=== PATIENT | male | born 1980 | race Caucasian/White ===

== ENCOUNTER 2025-08-03 12:44 | Emergency (ER) | payer BC, SELFPAY ==
[2025-08-03 12:45] VITALS: BP 134/92
--- NOTE | 2025-08-03 12:59 | ED.GENMED ---
History of Present Illness
General
Chief Complaint: Flank Pain
Source: patient
Exam Limitations: none
Time Seen by Provider: 08/03/25 12:51
History of Present Illness
History of Present Illness:
See MDM
Past History
Past History
ED Past Medical History: Other (kidney stones)
ED Past Surgical History: Urological (litho/scope/stent)
Social History
Tobacco: Non-smoker
Alcohol: Occasional
Phy Exam
Physical Exam
Physical Exam:
See MDM
Course
Orders/Labs/Results
Orders:
Orders
08/03/25 12:57
CT Abd/pel Without Iv Or Oral Urgent
Comment:
Reason For Exam: Left flank pain radiating to groin
HYDROmorphone [Dilaudid] 1 mg IM NOW STA
Ketorolac [Toradol] 30 mg IV NOW STA
08/03/25 13:03
Urinalysis Reflex To Culture Urgent
Date Specimen was Collected: 08/03/25
Time Specimen was Collected: 12:58
Urine Microscopic Reflex Cult Urgent
08/03/25 13:05
Ketorolac [Toradol] 30 mg IM NOW STA
Abnormal Lab Results
08/03/25
13:03
Urine Albumin (Reflex) 1+ A
(Neg - Trace)
Vital Signs
Initial and Last Documented VS:
Initial Vital Signs
Temp Pulse Resp BP Pulse Ox
97.5 F 64 20 134/92 99
08/03/25 12:45 08/03/25 12:45 08/03/25 12:45 08/03/25 12:45 08/03/25 12:45
Last Documented Vital Signs
Temp Pulse Resp BP Pulse Ox
97.5 F 64 20 134/92 99
08/03/25 12:45 08/03/25 12:45 08/03/25 12:45 08/03/25 12:45 08/03/25 13:02
MDM/Problems Addressed
Differential Diagnosis Includes:
Note:
CHIEF COMPLAINT(S)
Left flank pain radiating to the groin.
HISTORY OF PRESENT ILLNESS
The patient is a 45-year-old male with a medical history of back issues, including bulging discs diagnosed approximately five years ago, presents with left flank pain radiating to his groin. 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
with activity. He describes the pain as different from previous kidney stone episodes, suggesting it is not as acute. Associated symptoms include increased urinary frequency but no burning or hematuria. The patient also experiences intermittent
abdominal pain and nausea. The radiating nature of the pain suggests a possible kidney stone, although the patient mentions its peculiar nature compared to past kidney stone experiences.
PHYSICAL EXAM
General: Alert, no acute distress.
Skin: Warm, dry.
Head: Normocephalic, atraumatic
Neck: Appears supple, trachea midline.
Eyes, Ears, Nose, Mouth, and Throat: Moist mucous membranes
Cardiovascular: No signs of cyanosis
Respiratory: Respirations are non-labored.
Abdomen: Non-distended
Back: Mild left paralumbar muscular spasm
Musculoskeletal: No deformities
Neurological: No focal neurological deficit observed.
Psychiatric: Cooperative, appropriate mood and affect.
PLAN
A non-contrast CT scan is planned to rule out kidney stones or any other abdominal pathology, such as diverticulitis. The patient was given options for pain management and elected to receive Toradol (ketorolac) and Dilaudid (hydromorphone) for pain
relief. Urinalysis will also be conducted to check for any urinary tract abnormalities.
DIFFERENTIAL DIAGNOSIS
The Differential Diagnosis includes, in no particular order and is not limited to:
- Nephrolithiasis (Kidney Stone)
- Musculoskeletal strain or spasm
- Diverticulitis
- Urinary Tract Infection
- Pyelonephritis
- Hernia
- Prostatitis
- Testicular torsion
- Gastrointestinal issues
- Bowel obstruction
SUMMARY OF ENCOUNTER
The patient was seen in the emergency department for assessment of left flank pain radiating to the groin, with consideration for kidney stones or other abdominal pathology. Initial assessment favored ruling out kidney stones but acknowledged other
potential causes such as diverticulitis. Given the patients pain level, an analgesic plan including both Toradol and Dilaudid was implemented.
EMERGENCY TREATMENTS ADMINISTERED
The patient received Toradol (ketorolac) and Dilaudid (hydromorphone) for pain management.
INDEPENDENT REVIEW OF LABS AND INTERPRETATION OF TESTS
My independent review of the urinalysis will be completed for additional insights, aiming to detect any urinary abnormalities that correlate with the patients symptoms.
MEDICATION RECONCILIATION
Toradol (ketorolac) injected for pain management.
Dilaudid (hydromorphone) administered for severe pain relief.
MEDICAL DECISION MAKING
- Number and Complexity of Problems Addressed: Chronic conditions affecting care include a history of back issues with bulging discs and the current presentation of flank pain, urinary changes, and nausea. The differential diagnosis list was
considered in the patient�s management.
- Data:
Category 1: Urinalysis and non-contrast CT scan of the abdomen were ordered.
- Risk:
Prescription medication was prescribed for pain management.
Consideration of Admission/Observation: Escalation of care including admission/observation was considered given the complexity and risk of the patients presenting complaint, exam findings, and/or their underlying comorbidities. However, ultimately I
feel the patient is safe for outpatient management with close follow up. Reasoning: Work-up reassuring, does not reveal any acute life/organ threatening processes, patients symptoms well controlled upon reevaluation, reexamination is reassuring,
vitals are stable, patient agreeable with discharge, reliable for follow-up.
SUMMARY OF ENCOUNTER
The patient, a 45-year-old male, presented with left flank pain radiating to the groin. Given his previous history of kidney stones, nephrolithiasis was initially considered. However, diagnostic imaging via a non-contrast CT scan revealed a left
inguinal hernia without evidence of strangulation. A urinalysis was performed and showed negative for infection. After administration of pain medication, the patients symptoms improved significantly.
DISPOSITION
Discharge
ASSESSMENT
Left inguinal hernia (suspected)
PLAN
The patient was advised to follow up with general surgery on an outpatient basis. Recommendations were made to avoid the use of narcotics due to the risk of constipation and to initiate a stool softener to prevent straining, which could exacerbate
the hernia. The patient was also counseled to avoid excessive heavy lifting.
INDEPENDENT REVIEW OF LABS AND INTERPRETATION OF TESTS
My independent review of the urinalysis indicates no signs of infection. My independent interpretation of the CT scan shows concern for a left inguinal hernia, without evidence of strangulation.
PATIENT EDUCATION AND COUNSELING
The patient received counseling regarding the management of the hernia, including avoidance of narcotics to prevent constipation, the use of a stool softener, and limitations on heavy lifting to prevent worsening of the hernia.
FOLLOW-UP INSTRUCTIONS
The patient was instructed to schedule an outpatient follow-up with general surgery.
MEDICATION RECONCILIATION
Toradol (ketorolac) and Dilaudid (hydromorphone) were administered for pain relief during the visit.
MEDICAL DECISION MAKING
- Number and Complexity of Problems Addressed: Chronic conditions affecting care include back issues with bulging discs and the current presentation of flank pain and potential hernia. The differential diagnosis considered nephrolithiasis,
musculoskeletal strain, diverticulitis, urinary tract infection, pyelonephritis, hernia, prostatitis, testicular torsion, gastrointestinal issues, and bowel obstruction.
- Data:
- Category 1: Urinalysis was reviewed (negative for infection). Non-contrast CT of the abdomen interpreted, revealing a left inguinal hernia.
- Risk: Consideration of Admission/Observation: Escalation of care including admission/observation was considered given the complexity and risk of the patients presenting complaint, exam findings, and underlying comorbidities. However, ultimately,
the patient was deemed safe for outpatient management with close follow-up. Reasoning: Work-up was reassuring, not revealing any acute life/organ-threatening processes; patients symptoms were well-controlled upon reevaluation; reexamination was
reassuring; vitals were stable; patient agreeable with discharge and reliable for follow-up.
DIAGNOSIS
Left inguinal hernia (ICD-10: K40.90).
*Pulse Oximetry
SaO2: 99
Oxygen Mode of Delivery: Room air
Patient hypoxic: no
*Critical Care Note
Total Time (30-74mins, 75-104mins- exclusive of procedures): Not Applicable
ED Attending Note
-
Portions of this chart may have been created with voice recognition software.� Occasional wrong word or��sound alike� substitutions may have occurred due to the inherent limitations of voice recognition software.
Discharge Plan
Departure
Patient Disposition: Home (Routine Discharge)
Date of Disposition: 08/03/25
Time of Disposition: 15:43
Patient with high blood pressure during this ER visit?: No
Discharge Problem:
Inguinal hernia, left
Instructions: Groin hernias
Prescriptions:
New
diclofenac sodium 75 mg tablet,delayed release (DR/EC)
75 mg PO BID PRN (Reason: Pain) Qty: 20 0RF
No Action
tramadol 50 MG tablet
50 mg PO Q6HPRN PRN (Reason: severe pain) Qty: 8 0RF
Referrals:
NONE,* [Family Provider, Internal Medicine]
Junito Hirsch MD [Active, Surgical]
Activity Restrictions/Additional Instructions:
Please return for any worsening symptoms.
You may return at any time if you have further concerns.
Please follow up with the surgeon at the earliest available appointment. Please start taking a stool softener so you do not strain and make the hernia worse.
Thank you for choosing [facility].
Interventions
Interventions:
*Risk Screen - Suicide Last Done: 08/03/25 12:45
*Neglect/Abuse Screening Last Done: 08/03/25 12:45
Discharge Date and Time
Print Language: [place]
[2025-08-03] MEDS: DILAUDID 1 MG IM (13:04)
[2025-08-03] MEDS: TORADOL 30 MG IM (13:05)
[2025-08-03 13:30] LABS: Urine Character Clear (Clear)
[2025-08-03 13:53] LABS: Urine Red Blood Cell 0-2 /HPF (0-2)
[2025-08-03 15:45] VITALS: BP 136/84
== END 2025-08-03 15:49 | disposition home or self-care (01) ==
LOC: EMR 12:44
PROVIDERS: EMERGENCY PHYSICIAN Student in an Organized Health Care Education/Training Program
DX: K40.90 Unilateral inguinal hernia, without obstruction or gangrene, not specified as recurrent (principal); Z87.442 Personal history of urinary calculi
CPT/HCPCS: 99284; 96372; 74176; 81003; 81015